=== PATIENT | female | born 1960 | race Caucasian/White ===

== ENCOUNTER → 2019-04-19 | Outpatient (CLI) | payer MEDICAID ==
[2019-04-19 10:53] LABS: ALBUMIN 4.3 g/dL (3.5-5.0)
[2019-04-19 10:54] LABS: CALCIUM 9.5 mg/dL (8.3-10.5)
[2019-04-19 10:55] LABS: TOTAL PROTEIN 7.5 g/dL (6.4-8.3)
[2019-04-19 10:57] LABS: TOTAL BILIRUBIN 0.3 mg/dL (0.2-1.2)
== END ==
LOC: LAB 10:31
PROVIDERS: Family Medicine
DX: Z12.39 Encounter for other screening for malignant neoplasm of breast (principal); Z13.6 Encounter for screening for cardiovascular disorders; Z23 Encounter for immunization; Z13.1 Encounter for screening for diabetes mellitus; E03.9 Hypothyroidism, unspecified; F31.76 Bipolar disorder, in full remission, most recent episode depressed

== ENCOUNTER → 2019-08-07 | Outpatient (CLI) | payer MEDICAID ==
[~2019-08-07] MED LIST: ARIPIPRAZOLE10 M1 PO; FLUOXETINE HCL20 MG PO; HYDROXYZINE HYD50 M1 PO; LEVOTHYROXINE125 MCG PO; METRONIDAZOLE500 M1 PO
[2019-08-07 16:24] LABS: CLUE CELLS PRESENT (Not Observd)
== END ==
LOC: LAB 15:27
PROVIDERS: Family Medicine
DX: N76.0 Acute vaginitis (principal); R30.0 Dysuria
CPT/HCPCS: Q0111

== ENCOUNTER 2019-08-10 13:11 | Emergency (ER) | payer MEDICAID ==
[2019-08-10] MEDS ORDERED: ARIPIPRAZOLE10 M1 PO (13:18)
[2019-08-10] MEDS ORDERED: FLUOXETINE HCL20 MG PO (13:18)
[2019-08-10] MEDS ORDERED: METRONIDAZOLE500 M1 PO (13:18)
[2019-08-10] MEDS ORDERED: HYDROXYZINE HYD50 M1 PO (13:19)
[2019-08-10] MEDS ORDERED: LEVOTHYROXINE125 MCG PO (13:19)
[2019-08-10 13:37] LABS: EOS % 0.4 % (1.0-5.0); HEMATOCRIT 45.1 % (37.0-47.0); HEMOGLOBIN 14.9 g/dL (12.5-16.0); LYMPH# 2.7 (1.50-4.00); MEAN CELL VOLUME 86 fl (78-100); MEAN CORPUSCULAR HEMOGLOBIN 29 pg (27-31); MEAN CORPUSCULAR HGB CONC 33 g/dL (33-37); MEAN PLATELET VOLUME 9.5 fl (7.4-10.4); MONO # 0.6 (0.20-0.80); NEU # 7.9 (1.40-6.50); PLATELET COUNT 348 K/mm3 (130-400); RED BLOOD COUNT 5.23 M/mm3 (4.10-5.30); RED CELL DISTRIBUTION WIDTH 13.3 % (11.5-14.5); WHITE BLOOD COUNT 11.3 K/mm3 (4.8-10.8)
[2019-08-10 13:53] LABS: ALBUMIN 4.5 g/dL (3.5-5.0); POTASSIUM 3.7 mmol/L (3.5-5.1); SODIUM 138 mmol/L (136-145)
[2019-08-10 13:55] LABS: CALCIUM 9.5 mg/dL (8.3-10.5)
[2019-08-10 13:56] LABS: GLUCOSE 99 mg/dL (65-105); TOTAL PROTEIN 7.4 g/dL (6.4-8.3)
[2019-08-10 13:57] LABS: CARBON DIOXIDE 21 mmol/L (22-29)
[2019-08-10 13:58] LABS: TOTAL BILIRUBIN 0.5 mg/dL (0.2-1.2)
[2019-08-10 14:01] LABS: AST-SGOT 51 U/L (5-34)
[2019-08-10 14:02] LABS: ALT/SGPT 49 U/L (0-55)
[2019-08-10 14:22] LABS: ALCOHOL IN-HOUSE < 10 mg/dL (<10)
[2019-08-10 14:43] LABS: URINE APPEARANCE CLEAR; URINE BILIRUBIN NEGATIVE (NEGATIVE); URINE BLOOD NEGATIVE (NEGATIVE); URINE COLOR LIGHT YELLOW; URINE GLUCOSE NEGATIVE (NEGATIVE); URINE KETONE 1+ (NEGATIVE); URINE LEUKOCYTE ESTERASE NEGATIVE (NEGATIVE); URINE NITRATE NEGATIVE (NEGATIVE); URINE PROTEIN(semi-quant) TRACE mg/dL (NEGATIVE); URINE UROBILINOGEN NORMAL (NORMAL)
[2019-08-10 14:44] LABS: URINE WBC 0-1 /hpf (0-3)
[2019-08-10 20:50] VITALS: BP 142/92
== END 2019-08-10 20:50 | disposition home or self-care (01) ==
LOC: ED 13:11
PROVIDERS: Nurse Practitioner
DX: F29 Unspecified psychosis not due to a substance or known physiological condition (principal); F31.9 Bipolar disorder, unspecified; E03.9 Hypothyroidism, unspecified; F12.10 Cannabis abuse, uncomplicated

== ENCOUNTER 2019-08-23 15:27 | Emergency (ER) | payer MEDICAID ==
[2019-08-23 16:43] LABS: EOS # 0.1 (0.04-0.40); EOS % 0.6 % (1.0-5.0); HEMATOCRIT 44.5 % (37.0-47.0); HEMOGLOBIN 14.2 g/dL (12.5-16.0); LYMPH# 2.4 (1.50-4.00); MEAN CELL VOLUME 89 fl (78-100); MEAN CORPUSCULAR HEMOGLOBIN 28 pg (27-31); MEAN CORPUSCULAR HGB CONC 32 g/dL (33-37); MEAN PLATELET VOLUME 9.6 fl (7.4-10.4); MONO # 0.7 (0.20-0.80); NEU # 5.4 (1.40-6.50); PLATELET COUNT 307 K/mm3 (130-400); RED BLOOD COUNT 5.03 M/mm3 (4.10-5.30); WHITE BLOOD COUNT 8.5 K/mm3 (4.8-10.8)
[2019-08-23 16:54] LABS: ALBUMIN 4.2 g/dL (3.5-5.0); POTASSIUM 3.7 mmol/L (3.5-5.1); SODIUM 140 mmol/L (136-145)
[2019-08-23 16:55] LABS: CALCIUM 9.3 mg/dL (8.3-10.5)
[2019-08-23 16:56] LABS: GLUCOSE 74 mg/dL (65-105); TOTAL PROTEIN 6.6 g/dL (6.4-8.3)
[2019-08-23 16:57] LABS: CARBON DIOXIDE 25 mmol/L (22-29)
[2019-08-23 16:58] LABS: TOTAL BILIRUBIN 0.4 mg/dL (0.2-1.2)
[2019-08-23 17:02] LABS: AST-SGOT 76 U/L (5-34)
[2019-08-23 17:03] LABS: ALT/SGPT 95 U/L (0-55)
[2019-08-23 17:04] LABS: ACETAMINOPHEN < 1 ug/mL; ALCOHOL IN-HOUSE < 10 mg/dL (<10)
[2019-08-23 17:04] LABS: URINE APPEARANCE HAZY; URINE COLOR LT YELLOW
[2019-08-23 17:08] LABS: URINE BILIRUBIN NEGATIVE (NEGATIVE); URINE BLOOD NEGATIVE (NEGATIVE); URINE GLUCOSE NEGATIVE (NEGATIVE); URINE KETONE 1+ (NEGATIVE); URINE LEUKOCYTE ESTERASE TRACE (NEGATIVE); URINE NITRATE NEGATIVE (NEGATIVE); URINE PROTEIN(semi-quant) NEGATIVE (NEGATIVE); URINE UROBILINOGEN NORMAL (NORMAL)
[2019-08-23 18:25] VITALS: BP 130/85
== END 2019-08-23 18:00 | disposition home or self-care (01) ==
LOC: ED 15:27
PROVIDERS: Physician Assistant
DX: F20.9 Schizophrenia, unspecified (principal); F31.9 Bipolar disorder, unspecified; E03.9 Hypothyroidism, unspecified; F41.9 Anxiety disorder, unspecified; Z88.2 Allergy status to sulfonamides; Z88.5 Allergy status to narcotic agent

== ENCOUNTER → 2020-07-30 | Outpatient (CLI) | payer MEDICAID | LOC: LAB 08:37 | DX: B18.2 Chronic viral hepatitis C (principal) ==

== ENCOUNTER → 2020-08-05 | Outpatient (CLI) | payer MEDICAID | LOC: MAMMO 10:20 | DX: Z12.31 Encounter for screening mammogram for malignant neoplasm of breast (principal); N63.21 Unspecified lump in the left breast, upper outer quadrant ==

== ENCOUNTER → 2020-08-22 | Outpatient (CLI) | payer MEDICAID | LOC: RAD 12:27 | DX: N63.20 Unspecified lump in the left breast, unspecified quadrant (principal); R92.8 Other abnormal and inconclusive findings on diagnostic imaging of breast ==

== ENCOUNTER → 2021-07-14 | Outpatient (CLI) | payer MEDICAID ==
[2021-07-14 15:45] LABS: POTASSIUM 4.3 mmol/L (3.5-5.1)
[2021-07-14 15:46] LABS: CALCIUM 9.2 mg/dL (8.3-10.5)
[2021-07-14 15:47] LABS: BASO # 0.06 K/mm3 (0.02-0.10); EOS % 2.3 % (1.0-5.0); HEMATOCRIT 40.1 % (37.0-47.0); HEMOGLOBIN 13.3 g/dL (12.5-16.0); LYMPH# 2.75 K/mm3 (1.50-4.00); MEAN CELL VOLUME 86 fl (78-100); MEAN CORPUSCULAR HEMOGLOBIN 28 pg (27-31); MEAN CORPUSCULAR HGB CONC 33 g/dL (33-37); MEAN PLATELET VOLUME 8.4 fl (7.4-10.4); MONO # 0.52 K/mm3 (0.20-0.80); NEU # 5.22 K/mm3 (1.40-6.50); PLATELET COUNT 315 K/mm3 (130-400); RED BLOOD COUNT 4.68 M/mm3 (4.10-5.30); RED CELL DISTRIBUTION WIDTH 12.1 % (11.5-14.5); TOTAL PROTEIN 6.6 g/dL (6.4-8.3); WHITE BLOOD COUNT 8.8 K/mm3 (4.8-10.8)
[2021-07-14 15:49] LABS: TOTAL BILIRUBIN 0.2 mg/dL (0.2-1.2)
[2021-07-14 16:47] LABS: URINE APPEARANCE CLEAR; URINE BILIRUBIN NEGATIVE (NEGATIVE); URINE BLOOD NEGATIVE (NEGATIVE); URINE COLOR YELLOW; URINE GLUCOSE NEGATIVE (NEGATIVE); URINE KETONE NEGATIVE (NEGATIVE); URINE LEUKOCYTE ESTERASE 1+ (NEGATIVE); URINE NITRATE NEGATIVE (NEGATIVE); URINE PROTEIN(semi-quant) NEGATIVE (NEGATIVE); URINE UROBILINOGEN NORMAL (NORMAL)
== END ==
LOC: LAB 15:12
PROVIDERS: Family Medicine
DX: Z01.810 Encounter for preprocedural cardiovascular examination (principal); Z01.812 Encounter for preprocedural laboratory examination

== ENCOUNTER → 2021-11-07 | Outpatient (CLI) | payer MEDICAID | LOC: LAB 09:55 | DX: Z01.812 Encounter for preprocedural laboratory examination (principal) ==